=== PATIENT | female | born 1975 | race Two or more races ===

== ENCOUNTER 2024-06-04 18:02 | Emergency (ER) | payer MEDICAID, SELFPAY ==
[2024-06-04 18:03] VITALS: BMI 40.2
--- NOTE | 2024-06-04 18:08 | EKG_ITS ---
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
[2024-06-04 18:16] VITALS: BP 168/88; PULSE 87; RESP 18; TEMP 37.2; O2SAT 96
--- NOTE | 2024-06-04 18:20 | XR_ITS ---
Examination: PA lateral chest 2 views Technique: Upright PA lateral chest 2 views Indications: June 04, 2024 0825 hrs. Indications: Onset chest pain beginning 3 days ago. Findings: Normal heart size. Lungs are clear. The osseous structures are intact Impression: No active disease
--- NOTE | 2024-06-04 18:20 | PD.EDRME ---
Rapid Medical Screening Exam RME Arrival date/time: 06/04/24 18:02 48 year old female present to ED for c/o of chest pain for 3 days I have greeted and performed a focused initial assessment of this patient. A comprehensive ED assessment and evaluation of the patient, analysis of all test results, and completion of the medical decision making process will be conducted by additional ED providers. Chief Complaint: Chest Pain Time Seen by Provider: 06/04/24 18:04 Vital signs: Vital Signs Temperature 98.9 F 06/04/24 18:16 Pulse Rate 87 06/04/24 18:16 Respiratory Rate 18 06/04/24 18:16 Blood Pressure 168/88 H 06/04/24 18:16 Pulse Oximetry (%) 96 06/04/24 18:16 Oxygen Delivery Method Room Air 06/04/24 18:16
[2024-06-04 19:19] LABS: Basophils # (Auto) 0.1 Thou/mm3 (0.0-0.2); Basophils % (Auto) 1 % (0-2.5); Eosinophils # (Auto) 0.3 Thou/mm3 (0.0-0.5); Eosinophils % (Auto) 3 % (0-10); Hematocrit 43.1 % (36.0-46.0); Hemoglobin 14.1 g/dL (12.0-16.0); Immature Granulocytes % (Auto) 0 % (0-0); Immature Granulocytes Auto 0.03 Thou/mm3 (0.00-0.00); Lymphocytes # (Auto) 3.4 Thou/mm3 (1.0-4.8); Lymphocytes % (Auto) 37 % (10-50); Mean Corpuscular HGB Conc 32.7 g/dl (31.0-37.0); Mean Corpuscular Hemoglobin 27.8 pg (25.0-35.0); Mean Corpuscular Volume 85 fL (80-100); Monocytes # (Auto) 0.6 Thou/mm3 (0.0-0.8); Monocytes % (Auto) 7 % (0-12); Neutrophils # (Auto) 4.9 Thou/mm3 (1.8-7.7); Neutrophils % (Auto) 52 % (37-80); Nucleated Red Blood Cell % 0 /100 WBC (0); Platelet Count 344 Thou/mm3 (140-440); RDW Standard Deviation 46.4 fL (36.4-46.3); Red Blood Count 5.08 Miln/mm3 (4.00-5.20); White Blood Count 9.3 Thou/mm3 (3.6-11.0)
[2024-06-04 19:40] LABS: B-Type Natriuretic Peptide < 20 pg/mL (0-100)
[2024-06-04 19:41] LABS: Alanine Aminotransferase 31 U/L (10-49); Albumin, Serum 4.5 gm/dL (3.5-5.0); Albumin/Globulin Ratio 1.6 (1.2-2.2); Alkaline Phosphatase 105 U/L (46-116); Anion Gap 10 (7-16); Aspartate Amino Transferase 25 U/L (0-34); BUN/Creatinine Ratio 25 Ratio (12-20); Bilirubin,Total 0.8 mg/dL (0.3-1.2); Blood Urea Nitrogen 20 mg/dL (9-23); Carbon Dioxide 25.9 mMol/L (20.0-31.0); Chloride 104 mMol/L (98-107); Creatinine (Component) 0.8 mg/dL (0.6-1.3); Estimated Creatinine Clearance 92.9 mL/min (>60); Globulin 2.9 gm/dL (2.3-3.5); Glucose 101 mg/dL (74-106); Lipase 29 U/L (12-53); Magnesium 1.8 mg/dL (1.6-2.6); Osmolality,Calculated 282 (275-295); Potassium 3.4 mMol/L (3.4-5.1); Sodium 140 mMol/L (136-145); Total Protein 7.4 gm/dL (5.7-8.2); Troponin I < 0.002 ng/mL (0.0-0.045); eGFR > 60 See Note
[2024-06-04 21:36] VITALS: BP 155/87; PULSE 60; RESP 17; TEMP 36.7; O2SAT 97
--- NOTE | 2024-06-04 22:03 | PRELIM_ITS ---
Radiographs of the chest (2 views). June 04, 20242024 hours Clinical history: Chest pain for 3 days Comparison: No prior study is available for comparison. Findings: The heart, mediastinum and pulmonary vasquez are unremarkable. The lungs are clear. There is no pleural effusion. Mild degenerative changes are identified in the spine. Surgical clips are noted in the right upper quadrant. Impression: No acute cardiopulmonary process. Report Electronically Signed By: Chrissy Gibbons 06/04/2024 10:02:06 PM [EST]
[2024-06-04 22:11] LABS: Troponin I < 0.002 ng/mL (0.0-0.045)
--- NOTE | 2024-06-04 22:21 | PD.EDADULT ---
ED General RME/HPI General Chief complaint: Chest Pain Stated complaint: CHEST PAIN X 3 DAYS UNRELIEVE BY NITRO;SENT BY PCP Time Seen by Provider: 06/04/24 18:04 Arrival date/time: 06/04/24 18:02 CC: Chest pain HPI ongoing for the past 4 days, reproducible with palpation denies any pain with deep inhalation. Also complaining about upper back pain and headache. Patient denies fever chills shortness of breath difficulty breathing nausea or vomiting. History of diabetes. RME / HPI RME / HPI narrative: 06/04/24 18:02 48 year old female present to ED for c/o of chest pain for 3 days I have greeted and performed a focused initial assessment of this patient. A comprehensive ED assessment and evaluation of the patient, analysis of all test results, and completion of the medical decision making process will be conducted by additional ED providers. Related Data Home Medications ?Medication ?Instructions ?Recorded ?Confirmed amitriptyline 10 mg tablet 10 mg PO HS 03/27/22 03/27/22 hydroxyzine HCl 25 mg tablet 25 mg PO Q8H PRN Anxiety 03/27/22 03/27/22 lisinopril 10 1 tab PO BID 03/27/22 03/27/22 mg-hydrochlorothiazide 12.5 mg tablet metformin 500 mg tablet 500 mg PO BID 03/27/22 03/27/22 Previous Rx's ?Medication ?Instructions ?Recorded aspirin 81 mg capsule 81 mg PO QDAY #30 caps 03/28/22 nitroglycerin 0.3 mg sublingual 0.3 mg buccal PRN PRN persistent 03/28/22 tablet chest pain #30 tabs ibuprofen 800 mg tablet 800 mg PO TID PRN pain #30 tabs 09/02/22 Allergies Allergy/AdvReac Type Severity Reaction Status Date / Time No Known Allergies Allergy Verified 06/04/24 18:06 Review of Systems Review of Systems Narrative Review of Systems: GEN: No fever, no chills, no weight loss EYES: No discharge, no visual changes, no pain HEENT: No ear pain, no congestion, no sore throat PULM: No shortness of breath, no cough, no congestion CV: + chest pain, no dyspnea on exertion, no palpitations GI: No nausea, no vomiting, no diarrhea, no pain, no constipation : No frequency, no urgency, no dysuria MUSC/SKEL: No joint pain, no back pain SKIN: No rash PSYCH: No hallucinations, no depression HEME/LYMPH: No easy bleeding or bruising tendencies NEURO: No weakness, no headache Past Medical History Past Medical History NEUROLOGIC: Positive Migraine; Negative Neurological Disorders CARDIAC: Positive Cardiac Disorders and Hypertension; Negative Congestive Heart Failure RESPIRATORY: Negative Chronic Obstructive Pulmonary Disease (COPD) or Asthma GASTROINTESTINAL: Negative Gastrointestinal Disorders GENITOURINARY: Negative Genitourinary Disorders or Renal Disease MUSCULOSKELETAL: Negative Musculoskeletal Disorders ENDOCRINE: Positive Endocrine Disorders and Diabetes Mellitus Type 2; Negative Diabetes Mellitus Type 1 HEMATOLOGIC: Negative Blood Disorders or Sickle Cell Disease PSYCHO/SOCIAL: Positive Anxiety OTHER HISTORY: Negative Autoimmune Disease or Cancer Surgical History SURGICAL: Positive Section (x4); Negative Cardiac Surgery, Endocrine Surgery, Joint Replacement or Neurologic Surgery Social History SMOKING STATUS: Never smoker ED Exam Narrative Physical exam: [General: Morbidly obese not in any acute distress Head normocephalic HEENT: Within acceptable limits Neck is supple nontender Chest equal chest rise nontender to palpation Respiratory: Clear to auscultation no wheezes crackles or rubs CV: Rate rhythm is regular no murmurs rubs or clicks Abdomen is distended secondary to body habitus soft nontender no masses positive bowel sounds all 4 quadrants Back: No CVA tenderness no spinous process tenderness from cervical spine thoracic and lumbar spine Skin: Intact no petechiae rash induration ulceration or crepitus Extremities: Moving all extremity against resistance cap refill less than 2 seconds neurosensory intact Neuro: Awake alert oriented x3 Glascow coma 15 no focal deficits] Course Quality Measures none Orders Category Date Time Status EKG (ED ONLY) *Do not use* NOW Care 06/04/24 18:08 Completed EKG (ED Only) Stat Exams 06/04/24 18:08 Draft XR chest 2V Stat Exams 06/04/24 18:20 Taken BNP [B-Type Natriuretic Peptide] Stat Lab 06/04/24 18:57 Completed CBC Stat Lab 06/04/24 18:57 Completed CMP [Comprehensive Metabolic Panel] Stat Lab 06/04/24 18:57 Completed Lipase Stat Lab 06/04/24 18:57 Completed Mag [Magnesium] Stat Lab 06/04/24 18:57 Completed Troponin I Stat Lab 06/04/24 18:57 Completed Troponin I Stat Lab 06/04/24 21:49 Completed Vital Signs Vital signs: Vital Signs Temperature 98.9 F 06/04/24 18:16 Pulse Rate 87 06/04/24 18:16 Respiratory Rate 18 06/04/24 18:16 Blood Pressure 168/88 H 06/04/24 18:16 Pulse Oximetry (%) 96 06/04/24 18:16 Oxygen Delivery Method Room Air 06/04/24 18:16 [facility] Patient data External records reviewed:: [facility] previous records Clinical information provided by:: patient Social determinants that could affect healthcare access:: none Patient has the following chronic illnesses:: Diabetes How is presenting disease/condition affected by chronic disease/condition?: uneffected by Evaluation data The following diagnostics were reviewed and interpreted by me:: lab results, radiology exam(s) and EKG tracing(s) Lab and/or radiology exams considered but not ordered:: EKG performed at 1814 shows a ventricular rate of 87 LA interval 150 QRS of 87 QTc of 422 there is normal sinus rhythm. CBC shows no acute leukocytosis anemia thrombocytopenia CMP shows no acute electrolyte imbalances renal impairment transaminitis T. bili elevation Troponin is negative BNP is negative Lipase is negative Chest x-ray shows no acute finding requires emergent or immediate intermittent mention Delta troponin is negative. Interpretation Summary: I suspect this is all prolific in nature as it is reproducible on palpation patient will be discharged home with chest pain. Medications Medications considered but not ordered:: None Medication administrations:: None Consultations Consultation(s) initiated? (list below): No Diagnosis Differential Diagnosis ED Complaint MDM: ACS PR pneumonia Most likely diagnosis given after review of the tests above:: Chest pain Admission Indicated Admission indicated?: not indicated Explain why admission is indicated or not indicated:: Stable for outpatient follow-up Admission Request Was there a request for admission?: No Disposition Plan Disposition Plan: Discharge Discharge Attestation Discharge Attestation: The patient and all family members were given an opportunity to ask questions and understood the discharge instructions. Discharge instructions specifically effects, indications for sooner follow up or return to the emergency department, and the expected course of current diagnosis. Patient condition: Stable Medical Decision Making Differential Diagnosis Differential Diagnosis: ACS PR pneumonia Lab Data 06/04/24 18:57 06/04/24 18:57 Labs: Lab Results 06/04/24 06/04/24 Range/Units 18:57 21:49 WBC 9.3 (3.6-11.0) Thou/mm3 RBC 5.08 (4.00-5.20) Miln/mm3 Hgb 14.1 (12.0-16.0) g/dL Hct 43.1 (36.0-46.0) % MCV 85 (80-100) fL MCH 27.8 (25.0-35.0) pg MCHC 32.7 (31.0-37.0) g/dl RDW Std Deviation 46.4 H (36.4-46.3) fL Plt Count 344 (140-440) Thou/mm3 Neut % (Auto) 52 (37-80) % Lymph % (Auto) 37 (10-50) % Gibson % (Auto) 7 (0-12) % Eos % (Auto) 3 (0-10) % Baso % (Auto) 1 (0-2.5) % Neut # (Auto) 4.9 (1.8-7.7) Thou/mm3 Lymph # (Auto) 3.4 (1.0-4.8) Thou/mm3 Gibson # (Auto) 0.6 (0.0-0.8) Thou/mm3 Eos # (Auto) 0.3 (0.0-0.5) Thou/mm3 Baso # (Auto) 0.1 (0.0-0.2) Thou/mm3 Immature Gran # (Auto) 0.03 H (0.00-0.00) Thou/mm3 Absolute Nucleated RBC 0.00 (0.00-0.00) Thou/mm3 Immature Gran % 0 (0-0) % Nucleated RBC % 0 (0) /100 WBC Sodium 140 (136-145) mMol/L Potassium 3.4 (3.4-5.1) mMol/L Chloride 104 (98-107) mMol/L Carbon Dioxide 25.9 (20.0-31.0) mMol/L Anion Gap 10 (7-16) BUN 20 (9-23) mg/dL Creatinine 0.8 (0.6-1.3) mg/dL Estim Creat Clear Calc 92.9 (>60) mL/min eGFR > 60 (60 - ) See Note BUN/Creatinine Ratio 25 H (12-20) Ratio Glucose 101 (74-106) mg/dL Calculated Osmolality 282 (275-295) Calcium 9.0 (8.3-10.6) mg/dL Corrected Calcium 9.0 (8.5-10.1) mg/dL Magnesium 1.8 (1.6-2.6) mg/dL Total Bilirubin 0.8 (0.3-1.2) mg/dL AST 25 (0-34) U/L ALT 31 (10-49) U/L Alkaline Phosphatase 105 (46-116) U/L Troponin I < 0.002 < 0.002 (0.0-0.045) ng/mL B-Natriuretic Peptide < 20 (0-100) pg/mL Total Protein 7.4 (5.7-8.2) gm/dL Albumin 4.5 (3.5-5.0) gm/dL Globulin 2.9 (2.3-3.5) gm/dL Albumin/Globulin Ratio 1.6 (1.2-2.2) Lipase 29 (12-53) U/L Discharge Plan Plan Patient Disposition: HOME (Self Care) Patient condition on transfer: Stable Prescriptions/Referrals Prescriptions/Med Rec: No Action metformin 500 mg tablet 500 mg PO BID Patient Comments: TAKE 1 TABLET BY MOUTH TWICE A DAY WITH MEALS FOR 30 DAYS amitriptyline 10 mg tablet 10 mg PO HS Patient Comments: TAKE 1 TABLET BY MOUTH EVERY DAY AT BEDTIME FOR 30 DAYS hydroxyzine HCl 25 mg tablet 25 mg PO Q8H PRN (Reason: Anxiety) Patient Comments: TAKE 1 TABLET BY MOUTH EVERY 8 HOURS NEEDED FOR 30 DAYS lisinopril-hydrochlorothiazide 10-12.5 mg tablet 1 tab PO BID Patient Comments: TAKE 1 TABLET BY MOUTH TWICE A DAY aspirin 81 mg capsule 81 mg PO QDAY Qty: 30 0RF nitroglycerin 0.3 mg tablet, sublingual 0.3 mg buccal PRN PRN (Reason: persistent chest pain) Qty: 30 0RF Rx Instructions: Take 1 TAB under the tongue for persistent chest pain. ibuprofen 800 mg tablet 800 mg PO TID PRN (Reason: pain) Qty: 30 0RF Referrals: Adonis Mandujano MD [Physician] - In 1 week No Primary/Family,Physician [Primary Care Provider] - In 1 week Problem List Clinical Impression: Chest pain Patient/Caregiver Discharge Instructions Education Materials: ED Chest Pain, Uncertain Cause Additional Instructions: There is no damage to your heart your EKG is normal follow-up with your primary care Bidor there is a worsening of symptoms return the emergency room for reevaluation. Print Language: Mongolian Stand Alone Forms: [employer] Award Info., Work/School Release, Patient Portal Info Letter SHEYLA/OFELIA Supervising Physician SHEYLA/OFELIA Supervising Physician: Sal Manley ENP
[2024-06-04 22:32] VITALS: BP 151/91; PULSE 57; RESP 13; O2SAT 95
== END 2024-06-04 22:36 | disposition home or self-care (01) ==
PROVIDERS: Physician Assistant; Emergency Provider Emergency Medicine
DX: R07.9 Chest pain, unspecified (principal); I10 Essential (primary) hypertension; E11.9 Type 2 diabetes mellitus without complications; E66.01 Morbid (severe) obesity due to excess calories; Z68.41 Body mass index [BMI] 40.0-44.9, adult
CPT/HCPCS: 36415; 71046; 80053; 83690; 83735; 83880; 84484; 85025; 93005; 99283